=== PATIENT | male | born 1950 | race Caucasian/White ===

== ENCOUNTER → 2018-06-07 | Outpatient (CLI) | payer MEDICARE, BC | END | disposition home or self-care (01) | LOC: LAB SHORT 10:21 → PLD 10:21 | DX: D48.5 Neoplasm of uncertain behavior of skin (principal) | CPT/HCPCS: 88305 ==

== ENCOUNTER → 2019-05-21 | Outpatient (CLI) | payer MEDICARE, BC | END | disposition home or self-care (01) | LOC: LAB SHORT 14:26 → PLD 14:26 | DX: D48.5 Neoplasm of uncertain behavior of skin (principal) | CPT/HCPCS: 88305 ==

== ENCOUNTER → 2019-11-26 | Outpatient (CLI) | payer MEDICARE, BC | END | disposition home or self-care (01) | LOC: PLD 12:59 → LAB SHORT 12:59 | DX: C44.219 Basal cell carcinoma of skin of left ear and external auricular canal (principal); L98.8 Other specified disorders of the skin and subcutaneous tissue | CPT/HCPCS: 88305 ==

== ENCOUNTER → 2019-12-18 | Outpatient (CLI) | payer MEDICARE, BC | END | disposition home or self-care (01) | LOC: LAB SHORT 12:28 → PLD 12:28 | DX: C44.219 Basal cell carcinoma of skin of left ear and external auricular canal (principal) | CPT/HCPCS: 88305 ==

== ENCOUNTER → 2019-12-25 | Outpatient (CLI) | payer MEDICARE, BC | END | disposition home or self-care (01) | LOC: LAB SHORT 13:01 → PLD 13:01 | DX: D22.61 Melanocytic nevi of right upper limb, including shoulder (principal) | CPT/HCPCS: 88305 ==

== ENCOUNTER → 2020-01-08 | Outpatient (CLI) | payer MEDICARE, BC | END | disposition home or self-care (01) | LOC: PLD 11:50 → LAB SHORT 11:50 | DX: D48.5 Neoplasm of uncertain behavior of skin (principal) | CPT/HCPCS: 88305 ==

== ENCOUNTER → 2021-05-18 | Outpatient (CLI) | payer MEDICARE, BC | LOC: LAB SHORT 11:14 → LAB 11:14 | DX: D48.5 Neoplasm of uncertain behavior of skin (principal); L57.0 Actinic keratosis | CPT/HCPCS: 88305; 88312 ==

== ENCOUNTER → 2021-12-07 | Outpatient (CLI) | payer MEDICARE, BC | END | disposition home or self-care (01) | LOC: LAB SHORT 10:55 | DX: D22.4 Melanocytic nevi of scalp and neck (principal); L57.0 Actinic keratosis | CPT/HCPCS: 88304; 88305 ==

== ENCOUNTER → 2022-05-25 | Outpatient (CLI) | payer MEDICARE, BC | END | disposition home or self-care (01) | LOC: PLD 11:19 → LAB SHORT 11:19 | DX: L57.0 Actinic keratosis (principal); L73.9 Follicular disorder, unspecified | CPT/HCPCS: 88305; 88312 ==

== ENCOUNTER 2023-02-22 06:12 | Day surgery (SDC) | payer MEDICARE, BC ==
[~2023-02-22] VITALS: Ht 190.5 cm; Wt 99.7 kg
[~2023-02-22 06:12] MED LIST: LISI5 PO; ROSU10TA PO
--- NOTE | 2023-02-22 06:35 | NUR ---
02/22/23 0635 Beth Cesar AT 0647 PLEDGET [id number]
[2023-02-22 08:06] VITALS: BP 128/62
--- NOTE | 2023-02-22 08:11 | NUR ---
02/22/23 0811 Arya Jenkins IV REMOVED INTACT. SITE WNL.
== END 2023-02-22 08:20 | disposition home or self-care (01) ==
LOC: ORSCSDS 06:12
PROVIDERS: Student in an Organized Health Care Education/Training Program
PROC: 08RJ3JZ Replacement of Right Lens with Synthetic Substitute, Percutaneous Approach (ICD-10-PCS; principal; 2023-02-22 07:30)
DX: H25.11 Age-related nuclear cataract, right eye (principal); I10 Essential (primary) hypertension; E78.00 Pure hypercholesterolemia, unspecified; J45.909 Unspecified asthma, uncomplicated; Z79.899 Other long term (current) drug therapy
CPT/HCPCS: J2001; J2250; J3010; J7040; V2632

== ENCOUNTER 2023-03-08 06:13 | Day surgery (SDC) | payer MEDICARE, BC ==
[~2023-03-08] VITALS: Ht 190.5 cm; Wt 99.4 kg
--- NOTE | 2023-03-08 06:44 | NUR ---
03/08/23 0644 Yuni Aguirre 0631 CRYSTAL 0650
[2023-03-08 07:59] VITALS: BP 133/66
--- NOTE | 2023-03-08 08:15 | NUR ---
03/08/23 0815 Gene Chapman IV DISCONTINUED, WNL, PT EDUCATED.
== END 2023-03-08 08:12 | disposition home or self-care (01) ==
LOC: ORSCSDS 06:13
PROVIDERS: Student in an Organized Health Care Education/Training Program
PROC: 08RK3JZ Replacement of Left Lens with Synthetic Substitute, Percutaneous Approach (ICD-10-PCS; principal; 2023-03-08 07:30)
DX: H25.12 Age-related nuclear cataract, left eye (principal); Z96.1 Presence of intraocular lens; I10 Essential (primary) hypertension; E78.00 Pure hypercholesterolemia, unspecified; Z79.899 Other long term (current) drug therapy
CPT/HCPCS: J2001; J2250; J3010; J7040; V2632

== ENCOUNTER 2023-03-27 06:09 | Day surgery (SDC) | payer MEDICARE, BC ==
[2023-03-27] VITALS (8 sets, daily range): BP systolic 127–163; BP diastolic 57–73
[~2023-03-27] VITALS: Ht 190 cm; Wt 98.6 kg
[~2023-03-27 06:09] MED LIST changes: +MULVITA PO; +UBID10 PO
[2023-03-27] MEDS ORDERED: FISH OIL 1,2001 EAC4 PO (06:52)
[2023-03-27] MEDS ORDERED: PRED FORTE5 M1 LEFTEYE (06:53)
[2023-03-27] MEDS ORDERED: OCUFLOX511 BOTHEYES (06:53)
--- NOTE | 2023-03-27 07:34 | NUR ---
Ambulatory in Day Surgery. Pre-Op teaching done. Pt verbalizes understanding. Patient confirms NPO status and agrees with scheduled surgery. History, Chart, Medications and Allergies reviewed before start of procedure. Lungs clear T/O to Auscultation. Surgical site prepped with 2% Chlorhexidine cloth wipe. Patient States Post-Procedure ride home has been arranged. PT STS OFFICE DID NOT PROVIDE CHLX WIPES/SCRUBS PRIOR TO SURGERY.
[2023-03-27 08:08] LABS: Bun/Creatinine Ratio 28.4 (12.0-20.0); Calcium, Blood 9.2 mg/dL (8.5-10.1); Creatinine, Blood 0.74 mg/dL (0.60-1.20); Potassium, Blood 5.3 mmol/L (3.5-5.5)
--- NOTE | 2023-03-27 10:08 | NUR ---
Patient up to Ambulate independently. Gait steady. Discharge instructions reviewed with patient. Patient verbalizes understanding. Copy given to patient to take home. Dressing to procedure site clean, dry, intact with no visible drainage, swelling, erythema or bruising noted. Patient States Post-Procedure ride home has been arranged. Discharged via wheelchair to private car for ride home.
== END 2023-03-27 10:10 | disposition home or self-care (01) ==
LOC: ORSCMMR 06:09 → ORD 07:30 → ORSCMMR 07:30
PROVIDERS: Surgery
PROC: 0JB50ZX Excision of Left Neck Subcutaneous Tissue and Fascia, Open Approach, Diagnostic (ICD-10-PCS; principal; 2023-03-27 07:30)
PROC: 0JBF0ZX Excision of Left Upper Arm Subcutaneous Tissue and Fascia, Open Approach, Diagnostic (ICD-10-PCS; principal; 2023-03-27 07:30)
DX: D17.1 Benign lipomatous neoplasm of skin and subcutaneous tissue of trunk (principal); D17.0 Benign lipomatous neoplasm of skin and subcutaneous tissue of head, face and neck; I10 Essential (primary) hypertension; E78.5 Hyperlipidemia, unspecified; Z79.899 Other long term (current) drug therapy
CPT/HCPCS: 80048; 88304; J0690; J1100; J2371; J2405; J2704; J3010; J7120

== ENCOUNTER → 2023-05-01 | Outpatient (CLI) | payer MEDICARE, BC ==
[~2023-05-01] MED LIST changes: +FISH OIL 1,2001 EAC4 PO; +OCUFLOX511 BOTHEYES; +PRED FORTE5 M1 LEFTEYE
== END ==
LOC: PLD 11:42 → LAB SHORT 11:42
DX: C43.59 Malignant melanoma of other part of trunk (principal); L57.0 Actinic keratosis
CPT/HCPCS: 88305

== ENCOUNTER → 2023-05-16 | Outpatient (CLI) | payer MEDICARE, BC | LOC: LAB SHORT 08:05 → PLD 08:05 | DX: D03.59 Melanoma in situ of other part of trunk (principal) | CPT/HCPCS: 88305 ==

== ENCOUNTER 2024-06-07 00:05 | Day surgery (SDC) | payer MEDICARE ==
[2024-06-07] MEDS ORDERED: INCLISIRAN SODIUM 284 MG/1.5 ML SYRINGE SC SCH (06:00)
[2024-06-07 15:06] VITALS: BP 140/70
== END 2024-06-07 15:41 | disposition home or self-care (01) ==
LOC: ATC 00:05
DX: E78.5 Hyperlipidemia, unspecified (principal); I10 Essential (primary) hypertension; Z79.899 Other long term (current) drug therapy; Z88.8 Allergy status to other drugs, medicaments and biological substances
CPT/HCPCS: J1306

== ENCOUNTER 2025-03-31 01:48 | Day surgery (SDC) | payer MEDICARE ==
[~2025-03-31 01:48] MED LIST changes: +Aspir 8181 MG PO; +CLOP75 PO; +EFUDEX40 GM TP; +NITR.4SL SL; +Saw Palmetto160 MG PO
[2025-03-31] MEDS ORDERED: INCLISIRAN SODIUM 284 MG/1.5 ML SYRINGE SC SCH (06:00)
[2025-03-31 11:12] VITALS: BP 144/62
== END 2025-03-31 11:16 | disposition home or self-care (01) ==
LOC: ATC 01:48
DX: E78.00 Pure hypercholesterolemia, unspecified (principal); I87.2 Venous insufficiency (chronic) (peripheral); I83.811 Varicose veins of right lower extremity with pain; I83.892 Varicose veins of left lower extremity with other complications; I10 Essential (primary) hypertension; Z78.9 Other specified health status; Z79.899 Other long term (current) drug therapy; Z88.8 Allergy status to other drugs, medicaments and biological substances
CPT/HCPCS: 96372; J1306